=== PATIENT | female | born 1950 | race Caucasian/White ===

== ENCOUNTER 2018-04-08 09:56 | Emergency (ER) | payer MEDICARE, OTHER ==
--- NOTE | 2018-04-08 10:31 | EDM.PDOC ---
ED HPI GENERAL MEDICAL PROBLEM - General Chief Complaint: Lower Extremity Injury/Pain Stated Complaint: FALL Time Seen by Provider: 04/08/18 10:12 Source of Information: Reports: Patient History Limitations: Reports: No Limitations - History of Present Illness INITIAL COMMENTS - FREE TEXT/NARRATIVE: HISTORY AND PHYSICAL: History of present illness: Patient is a 68-year-old female brought in by EMS with left hip injury. She states that last night around 10 PM she was out watering her garden she was going down the 2 steps to her back door missed the first step and fell down and believes that she landed vertically onto her left side. She states she was unable to put any pressure on it immediately and this morning woke up still unable to put pressure on it so she called EMS. She also notes that she scraped her left forearm on her railing on the way down. She denies hitting her head and denies any loss of consciousness. She denies any dizziness or lightheadedness prior to the fall. She denies any headache, nausea, vomiting, abdominal pain, diarrhea, chest pain, shortness of breath. Patient denies any significant past medical history denies any aspirin use or anticoagulation. She reports social drinking and did state that she had one drink last night. She smokes half to 1 pack per day 30 years. Patient reports history of left patella fracture with surgical repair. Review of systems: As per history of present illness and below otherwise all systems reviewed and negative. Past medical history: As per history of present illness and as reviewed below otherwise noncontributory. Surgical history: As per history of present illness and as reviewed below otherwise noncontributory. Social history: No reported history of drug or alcohol abuse. Family history: As per history of present illness and as reviewed below otherwise noncontributory. Physical exam: General: Patient lying comfortably well-developed and well-nourished in no acute distress HEENT: Atraumatic, normocephalic, pupils reactive, negative for conjunctival pallor or scleral icterus, mucous membranes moist, throat clear, neck supple, nontender, trachea midline. Lungs: Clear to auscultation, breath sounds equal bilaterally, chest nontender. Heart: S1S2, regular, negative for clicks, rubs, or JVD. Abdomen: Soft, nondistended, nontender. Negative for masses or hepatosplenomegaly. Negative for costovertebral tenderness. Pelvis: Stable nontender. Genitourinary: Deferred. Rectal: Deferred. Extremities: There is abrasion from the medial side of the left wrist onto midforearm. No tenderness to palpation of the left wrist forearm or elbow. There is no ecchymosis or swelling to the left hip and thigh. Skin is intact. She has tenderness to palpation of the left greater trochanter and down the lateral side of the left eye. She was unable to flex at the hip. Left hip is externally rotated. She has no pain to palpation of the left knee and ankle and has normal ROM. Negative for cords or calf pain. Neurovascular unremarkable. Neuro: Awake, alert, oriented. Cranial nerves II through XII unremarkable. Cerebellum unremarkable. Motor and sensory unremarkable throughout. Exam nonfocal. Notes: Dr. Tadeo reviewed x-rays, agrees to transfer to [facility]. Diagnostics: X-ray left hip and pelvis CBC, CMP, PT/INR, EKG, CXR Therapeutics: Morphine 2mg Impression: Left hip fracture Plan: Discussed with Dr. Norman, ER physician [facility], patient accepted for transfer. Definitive disposition and diagnosis as appropriate pending reevaluation and review of above. left leg Pain Score (Numeric/FACES): 10 - Related Data Allergies Allergy/AdvReac Type Severity Reaction Status Date / Time No Known Allergies Allergy Verified 04/08/18 10:02 Home Meds: Home Meds . [No Known Home Meds] 04/08/18 [History] Past Medical History - Past Health History Medical/Surgical History: Denies Medical/Surgical History - Infectious Disease History Infectious Disease History: Reports: Chicken Pox, Mumps - Past Surgical History Musculoskeletal Surgical History: Reports: Other (See Below) Other Musculoskeletal Surgeries/Procedures:: Knee surgery Social & Family History - Family History Family Medical History: Noncontributory - Tobacco Use Smoking Status *Q: Current Every Day Smoker Years of Tobacco use: 30 Packs/Tins Daily: 0.5 - Alcohol Use Days Per Week of Alcohol Use: 3 Number of Drinks Per Day: 4 Total Drinks Per Week: 12 - Recreational Drug Use Recreational Drug Use: No Review of Systems - Review of Systems Review Of Systems: ROS reveals no pertinent complaints other than HPI. ED EXAM, GENERAL - Physical Exam Exam: See Below (See dictation) Course - Vital Signs Last Recorded V/S: Last Vital Signs Temp 37.1 C 04/08/18 10:03 Pulse 98 04/08/18 10:03 Resp 20 04/08/18 10:03 BP 155/90 H 04/08/18 10:03 Pulse Ox 96 04/08/18 10:03 - Orders/Labs/Meds Orders: Active Orders 24 hr Category Date Time Status EKG Documentation Completion [RC] STAT Care 04/08/18 10:50 Active Chest 1V Frontal [CR] Stat Exams 04/08/18 10:50 Taken Femur Min 2V Lt [CR] Stat Exams 04/08/18 10:37 Taken Pelvis 1V or 2V [CR] Stat Exams 04/08/18 10:37 Taken CBC WITH AUTO DIFF [HEME] Stat Lab 04/08/18 10:50 Ordered COMPREHENSIVE METABOLIC PN,CMP [CHEM] Stat Lab 04/08/18 10:50 Ordered INR,PT,PROTHROMBIN TIME [COAG] Stat Lab 04/08/18 10:50 Ordered Sodium Chloride 0.9% [Normal Saline] 1,000 ml Med 04/08/18 10:59 Active IV STAT Sodium Chloride 0.9% [Saline Flush] Med 04/08/18 10:59 Active 10 ml FLUSH ASDIRECTED PRN Sodium Chloride 0.9% [Saline Flush] Med 04/08/18 10:59 Active 2.5 ml FLUSH ASDIRECTED PRN Saline Lock Insert [OM.PC] Stat Oth 04/08/18 10:59 Ordered Medication Orders Sodium Chloride (Normal Saline) 1,000 mls @ 125 mls/hr IV STAT ONE Stop: 04/08/18 18:58 Sodium Chloride (Saline Flush) 10 ml FLUSH ASDIRECTED PRN PRN Reason: Keep Vein Open Sodium Chloride (Saline Flush) 2.5 ml FLUSH ASDIRECTED PRN PRN Reason: Keep Vein Open Meds: Medications Generic Name Dose Route Start Last Admin Trade Name Freq PRN Reason Stop Dose Admin Sodium Chloride 1,000 mls @ 125 mls/hr 04/08/18 10:59 Normal Saline IV 04/08/18 18:58 STAT ONE Sodium Chloride 10 ml 04/08/18 10:59 Saline Flush FLUSH ASDIRECTED PRN Keep Vein Open Sodium Chloride 2.5 ml 04/08/18 10:59 Saline Flush FLUSH ASDIRECTED PRN Keep Vein Open Discontinued Medications Generic Name Dose Route Start Last Admin Trade Name Igorq PRN Reason Stop Dose Admin Morphine Sulfate 2 mg 04/08/18 10:59 Morphine IVPUSH 04/08/18 11:00 ONETIME ONE Departure - Departure Time of Disposition: 11:10 Disposition: DC/Tfer to Acute Hospital 02 Condition: Good Clinical Impression: Hip fracture, left - Discharge Information Referrals: PCP,None [Primary Care Provider] - Forms: ED Department Discharge - My Orders Last 24 Hours: My Active Orders 04/08/18 10:37 Femur Min 2V Lt [CR] Stat Pelvis 1V or 2V [CR] Stat 04/08/18 10:50 EKG Documentation Completion [RC] STAT CBC WITH AUTO DIFF [HEME] Stat COMPREHENSIVE METABOLIC PN,CMP [CHEM] Stat INR,PT,PROTHROMBIN TIME [COAG] Stat 04/08/18 10:59 Sodium Chloride 0.9% [Normal Saline] 1,000 ml IV STAT Sodium Chloride 0.9% [Saline Flush] 10 ml FLUSH ASDIRECTED PRN Sodium Chloride 0.9% [Saline Flush] 2.5 ml FLUSH ASDIRECTED PRN Saline Lock Insert [OM.PC] Stat - Assessment/Plan Last 24 Hours: My Active Orders 04/08/18 10:37 Femur Min 2V Lt [CR] Stat Pelvis 1V or 2V [CR] Stat 04/08/18 10:50 EKG Documentation Completion [RC] STAT CBC WITH AUTO DIFF [HEME] Stat COMPREHENSIVE METABOLIC PN,CMP [CHEM] Stat INR,PT,PROTHROMBIN TIME [COAG] Stat 04/08/18 10:59 Sodium Chloride 0.9% [Normal Saline] 1,000 ml IV STAT Sodium Chloride 0.9% [Saline Flush] 10 ml FLUSH ASDIRECTED PRN Sodium Chloride 0.9% [Saline Flush] 2.5 ml FLUSH ASDIRECTED PRN Saline Lock Insert [OM.PC] Stat
[2018-04-08] MEDS ORDERED: Sodium Chloride 0.9% 1,000 ML IV ONE (10:59)
[2018-04-08] MEDS ORDERED: Morphine 2 MG/ML Syringe IVPUSH ONE (10:59)
[2018-04-08] MEDS ORDERED: Sodium Chloride 0.9% 10 ML Syringe FLUSH PRN (10:59)
[2018-04-08] MEDS ORDERED: Sodium Chloride 0.9% 2.5 ML Syringe FLUSH PRN (10:59)
--- NOTE | 2018-04-08 11:09 | CR ---
EXAMINATION: Pelvis and left femur HISTORY: Pain COMPARISON: None TECHNIQUE: AP views of the pelvis and AP and lateral views of the femur FINDINGS: There is a comminuted mildly impacted left intertrochanteric proximal femur fracture. There is a vertical component extending inferiorly along the proximal femur into the diaphysis. Remaining osseous structures and joint spaces appear intact. Bone mineralization is normal to osteopenic. SI keith ints are symmetric. No suprapatellar joint effusion. Hardware fixation of the patella is noted. IMPRESSION: Comminuted mildly impacted left intertrochanteric fracture.
--- NOTE | 2018-04-08 11:13 | CR ---
EXAMINATION: Portable chest radiograph. HISTORY: Shortness of breath. FINDINGS: The trachea is midline. The cardiomediastinal silhouette is within normal limits. No pulmonary infilt rates, effusions or pneumothorax. Mild aortic vascular calcifications. Osseous structures appear unremarkable. IMPRESSION: No acute cardiopulmonary process.
[2018-04-08 12:00] LABS: CHLORIDE,CL 95 mmol/L (98-107); SODIUM,NA 129 mmol/L (136-145)
== END 2018-04-08 11:50 ==
LOC: MW.ED 09:56
DX: S72.142A Displaced intertrochanteric fracture of left femur, initial encounter for closed fracture (principal); F17.210 Nicotine dependence, cigarettes, uncomplicated; W10.9XXA Fall (on) (from) unspecified stairs and steps, initial encounter
CPT/HCPCS: 36415; 71045; 72170; 73552; 80053; 81001; 85025; 85610; 93005; 96374; 99285; J2270; J7040; 99284

== ENCOUNTER 2020-09-25 20:06 | Emergency (ER) | payer MEDICARE, OTHER ==
[2020-09-25] MEDS ORDERED: Diphtheria/Tetanus Toxoids,Adult (Td) 0.5 ML Syringe IM ONE (21:19)
[2020-09-25] MEDS: Diphtheria,Pertussis(Acell),Tetanus Vaccine 0.5 ML Syringe IM ONE ×2 (21:24→22:35)
[2020-09-25] MEDS: Ibuprofen 600 MG Tab PO ONE ×3 (21:27→22:34)
--- NOTE | 2020-09-25 22:02 | CR ---
Indication: Fall, injury Technique: Three views Comparison: None Findings: Bones: There is an oblique fracture at the level of the surgical neck of the left proximal humerus. No significant distraction or displacement. Joint spaces: No dislocation. Soft tissues: Mild atherosclerotic calcification. Dictated by Nakul Nichole MD @ Sep 25 2020 9:59PM Signed by Dr. Nakul Nichole @ Sep 25 2020 10:00PM
--- NOTE | 2020-09-25 22:04 | CR ---
Indication: Fall, injury Technique: Two views Comparison: None Findings: Bones: Surgical neck left proximal humerus fracture redemonstrated, please see shoulder report for additional comments. No distal humeral fracture identified. Joint spaces: No dislocation. Soft tissues: Unremarkable. Dictated by Nakul Nichole MD @ Sep 25 2020 9:59PM Signed by Dr. Nakul Nichole @ Sep 25 2020 10:02PM
--- NOTE | 2020-09-25 22:12 | CR ---
Indication: Fall with injury Technique: Two views Comparison: None Findings: Bones: Alignment is normal. No fractures or bone lesions. Joint spaces: Unremarkable. Soft tissues: Unremarkable. Dictated by Nakul Nichole MD @ Sep 25 2020 9:59PM Signed by Dr. Nakul Nichole @ Sep 25 2020 10:11PM
--- NOTE | 2020-09-25 22:15 | CR ---
Indication: Fall, injury Technique: Three views Comparison: None Findings: Bones: Osteopenia without evidence of fracture. Joint spaces: Unremarkable. Soft tissues: Unremarkable. Dictated by Nakul Nichole MD @ Sep 25 2020 9:59PM Signed by Dr. Nakul Nichole @ Sep 25 2020 10:12PM
--- NOTE | 2020-09-25 22:40 | EDM.PDOC ---
ED HPI GENERAL MEDICAL PROBLEM - General Chief Complaint: Upper Extremity Injury/Pain Stated Complaint: SLIP AND FALL Time Seen by Provider: 09/25/20 20:29 - History of Present Illness INITIAL COMMENTS - FREE TEXT/NARRATIVE: CHIEF COMPLAINT(S): Fall HISTORY OF PRESENT ILLNESS: This is a 70-year-old woman without any significant past medical history who comes to the emergency department with a chief complaint of fall. The patient states that prior to arrival she slipped and fell on the ice. She states that she did not hit her head or have any loss of consciousness. She denies any oral anticoagulation. She denies any preceding chest pain, shortness of breath and did not pass out. She states that she caught herself on her left hand and she is experiencing some left hand, left wrist, and left shoulder pain. She denies any numbness, tingling, or weakness. She states that the pain is worse when she tries to lift her left arm. She describes the pain as achy. She rates it as 6 out of 10. She denies any radiation of the pain. She denies any relieving symptoms. She has not yet tried any pain medications. She denies any other injuries. She denies any chest pain, shortness of breath, abdominal pain, nausea or vomiting. She does not recall when her tetanus was last administered. REVIEW OF SYSTEMS: Constitutional: Denies fever, chills. Eyes: Denies eye pain Ears, Nose, Mouth, & Throat: Denies earache Cardiovascular: Denies chest pain Respiratory: Denies shortness of breath Gastrointestinal: Denies Nausea, vomiting, diarrhea, hematochezia. Genitourinary: Denies hematuria MSK: Positive for left hand, left wrist, and left shoulder pain. Neurological: Denies blurred vision, numbness, tingling, weakness Psychiatric: Denies depression PAST MEDICAL HISTORY: As per history of present illness and as reviewed below otherwise noncontributory. SURGICAL HISTORY: As per history of present illness and as reviewed below otherwise noncontributory. SOCIAL HISTORY: As per history of present illness and as reviewed below otherwise noncontributory. FAMILY HISTORY: As per history of present illness and as reviewed below otherwise noncontributory. EXAMINATION OF ORGAN SYSTEMS/BODY AREAS: Constitutional: Blood pressure is 180/89, heart rate 82, respiratory rate 18 with an oxygen saturation 96% on room air. Temperature 36.4 General: Overall well-appearing woman who is in no acute distress Psychiatric: Appropriate mood and affect. Eyes: No scleral icterus or conjunctival erythema ENMT: Moist mucous membranes. No pharyngeal erythema no missed or chipped teeth. No blood in the oropharynx. Cardiovascular: Regular, rate, and rhythm. No gallops, murmurs, or rubs. Bilateral upper extremity pulses symmetric and intact. No peripheral edema. No JVD. Respiratory: Lungs clear to auscultation bilaterally. No wheezes, rales, or rhonchi. Gastrointestinal: Soft, non-tender, non-distended. Normoactive bowel sounds Genitourinary: No suprapubic tenderness Musculoskeletal: Decreased range of motion of the left shoulder secondary to pain. The patient has full dexterity of her left hand, left wrist, left elbow. There is tenderness to palpation along the upper part of the left arm near her shoulder. There is medial wrist tenderness. There is no anatomical snuffbox tenderness. There is no cervical, thoracic, or lumbar midline tenderness. Skin: There is a small puncture wound to the patient's left palm without any active bleeding or laceration. Neurological: Alert, GCS 15 sensation distally is intact. Behavioral Science Chair strength is equal bilaterally. MEDICAL DECISION MAKING AND COURSE IN THE ED WITH INTERPRETATION/REVIEW OF DIAGNOSTIC STUDIES: This is a 70-year-old woman without any significant past medical history who comes to the emergency department with mechanical fall with left shoulder, left wrist, and left hand pain. Given that the patient does not have a tetanus shot we will update it. We will provide the patient with ibuprofen by mouth for pain relief. We will obtain x-rays of the left shoulder, left humerus, left hand, left forearm. We will reevaluate. I do not believe any other labs or imaging are indicated. The radiological images were viewed by myself along with reading the report from the radiologist. Left shoulder x-ray reveals a oblique fracture at the level of the surgical necks of the left proximal humerus. No displacement. Left humeral x-ray reveals a surgical neck left proximal humeral fracture. Otherwise unremarkable. Left hand x-ray does not reveal any fracture or dislocation. Left forearm x-ray does not reveal any fracture or dislocation. After imaging I did discuss with patient that she does not fact have a fracture. I discussed with her that she should use Tylenol and Motrin for pain relief at home. I discussed with her that we would be placing her in a shoulder immobilizer and that she need to be evaluated by orthopedics outpatient in approximately 5 to 7 days. I did offer a contact number for orthopedic surgeon however she states that she has her own orthopedic surgeon in [place]. At the time of reevaluation she again was neurovascularly intact in all ulnar, radial, and median nerve distributions. There was no swelling in her pulses were intact. She is to return for any new or worsening symptoms The patient was placed in a shoulder immobilizer by RN. DISPOSITION: The patient was discharged home in stable condition. The patient will follow up with orthopedics within 5 to 7 days CONDITION: Fair PROCEDURES: None FINAL IMPRESSION(S)/DIAGNOSES: 1. Acute proximal left humeral oblique fracture DME: Shoulder Immobilizer Left Indication: Proximal Humeral Fracture Benefit: Immobilization Duration: Until follow up with orthopedics Fab Beckett M.D. Left Upper Arm Pain Score (Numeric/FACES): 6 - Related Data Allergies Allergy/AdvReac Type Severity Reaction Status Date / Time No Known Allergies Allergy Verified 09/25/20 20:20 Home Meds: Home Meds . 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: - Infectious Disease History Infectious Disease History: Reports: Chicken Pox, Mumps - Past Surgical History Musculoskeletal Surgical History: Reports: Other (See Below) Other Musculoskeletal Surgeries/Procedures:: Knee surgery, femur fx surgery Social & Family History - Family History Family Medical History: No Pertinent Family History - Tobacco Use Tobacco Use Status *Q: Never Tobacco User Second Hand Smoke Exposure: No - Recreational Drug Use Recreational Drug Use: No Review of Systems - Review of Systems Review Of Systems: See Below ED EXAM, GENERAL - Physical Exam Exam: See Below Course - Vital Signs Last Recorded V/S: Last Vital Signs Temp 36.3 C 09/25/20 23:00 Pulse 81 09/25/20 23:00 Resp 18 09/25/20 23:00 BP 123/78 09/25/20 23:00 Pulse Ox 96 09/25/20 23:00 - Orders/Labs/Meds Orders: Active Orders 24 hr Category Date Time Status DME for Discharge [COMM] Stat Oth 01/26/21 22:29 Ordered Meds: Medications Discontinued Medications Generic Name Dose Route Start Last Admin Trade Name Mandy PRN Reason Stop Dose Admin Diphtheria/Tetanus/Acell Pertussis 0.5 ml 09/25/20 21:07 09/25/20 22:35 Boostrix IM 09/25/20 21:08 Not Given .ONCE ONE Ibuprofen 600 mg 09/25/20 21:02 09/25/20 22:34 Motrin PO 09/25/20 21:03 Not Given ONETIME ONE Tetanus/Diphtheria Toxoids 0.5 ml 09/25/20 21:19 09/25/20 21:24 Tenivac IM 09/25/20 21:20 0.5 ml .ONCE ONE Administration Departure - Departure Time of Disposition: 22:38 Disposition: Home, Self-Care 01 Condition: Fair Clinical Impression: Fracture of humerus Qualifiers: Encounter type: initial encounter Humerus Location: surgical neck Fracture type: closed Fracture morphology: unspecified fracture morphology Fracture alignment: nondisplaced Laterality: left Qualified Code(s): S42.215A - Unspecified nondisplaced fracture of surgical neck of left humerus, initial encounter for closed fracture - Discharge Information *PRESCRIPTION DRUG MONITORING PROGRAM REVIEWED*: No *COPY OF PRESCRIPTION DRUG MONITORING REPORT IN PATIENT PAULINE: No Instructions: Humerus Fracture Treated With Immobilization, [id number], How To Use a Sling, [id number], Pain Medicine Instructions, [id number] Referrals: PCP,None [Primary Care Provider] - Forms: ED Department Discharge Additional Instructions: You were evaluated today on an emergent basis. At this time you have a fracture of your upper arm bone called your humerus. This fracture is in good alignment. You are to keep the left arm in a sling until you follow-up with orthopedics in 5 to 7 days. If you have any worsening pain, weakness or numbness in your hand please return to the emergency department. Please take Tylenol 500 to 1000 mg every 6 hours and ibuprofen 400 mg every 6 hours for pain relief. [facility] [address], [address] [place] [address] The patient is informed of any results of their evaluation and diagnostic workup and all questions are answered. They are given discharge instructions and return precautions. The patient is stable for discharge. The patient states they understand and agree with the plan and that they will return if their symptoms get worse or if they have any new concerns. The following information is given to patients seen in the emergency department who are being discharged to home. This information is to outline your options for follow-up care. We provide all patients seen in our emergency department with a follow-up referral. The need for follow-up, as well as the timing and circumstances, are variable depending upon the specifics of your emergency department visit. If you don't have a primary care physician on staff, we will provide you with a referral. We always advise you to contact your personal physician following an emergency department visit to inform them of the circumstance of the visit and for follow-up with them and/or the need for any referrals to a consulting specialist. The emergency department will also refer you to a specialist when appropriate. This referral assures that you have the opportunity for follow-up care with a specialist. All of these measure are taken in an effort to provide you with optimal care, which includes your follow-up. Under all circumstances we always encourage you to contact your private physician who remains a resource for coordinating your care. When calling for follow-up care, please make the office aware that this follow-up is from your recent emergency room visit. If for any reason you are refused follow-up, please contact the [facility] Emergency Department at and asked to speak to the emergency department charge nurse. Sepsis Event Note (ED) - Evaluation Sepsis Screening Result: No Definite Risk - Focused Exam Vital Signs: Vital Signs Temp Pulse Resp BP Pulse Ox 09/25/20 23:00 36.3 C 81 18 123/78 96 09/25/20 20:15 36.4 C 82 18 180/89 H 96 - My Orders Last 24 Hours: My Active Orders 09/25/20 22:29 DME for Discharge [COMM] Stat - Assessment/Plan Last 24 Hours: My Active Orders 09/25/20 22:29 DME for Discharge [COMM] Stat
== END 2020-09-25 23:05 | disposition home or self-care (01) ==
LOC: MW.ED 20:06
DX: S42.212A Unspecified displaced fracture of surgical neck of left humerus, initial encounter for closed fracture (principal); S61.432A Puncture wound without foreign body of left hand, initial encounter; Z23 Encounter for immunization; W00.0XXA Fall on same level due to ice and snow, initial encounter
CPT/HCPCS: 73030-26-LT; 73030-LT; 73060-26-LT; 73060-LT; 73090-26-LT; 73090-LT; 73130-26-LT; 73130-LT; 90471; 90714; 99283; 99284

== ENCOUNTER 2023-12-22 20:36 | Inpatient (IN) | payer MEDICARE, OTHER ==
[2023-12-22 21:54] LABS: BASOPHILS ABSOLUTE AUTO 0.06 K/uL (0.00-0.20); BASOPHILS PERCENT AUTO 0.6 % (0.0-1.0); EOSINOPHILS ABSOLUTE AUTO 0.08 K/uL (0.00-0.45); EOSINOPHILS PERCENT AUTO 0.8 % (0.0-6.0); HEMATOCRIT 41.4 % (37.0-47.0); HEMOGLOBIN 13.8 g/dL (12.0-16.0); IMMATURE GRAN ABSOLUTE AUTO 0.05 K/uL (0.00-0.05); IMMATURE GRAN PERCENT AUTO 0.5 % (0.0-0.4); LYMPHOCYTES ABSOLUTE AUTO 1.49 K/uL (1.00-4.80); LYMPHOCYTES PERCENT AUTO 14.8 % (24.0-44.0); MEAN CORPUSCULAR HEMOGLOBIN 31.6 pg (28.0-32.0); MEAN CORPUSCULAR HGB CONC 33.3 g/dL (32.0-36.0); MEAN CORPUSCULAR VOLUME 94.7 fL (83.0-99.0); MEAN PLATELET VOLUME 9.6 fL (9.4-12.3); MONOCYTES ABSOLUTE AUTO 0.66 K/uL (0.00-0.80); MONOCYTES PERCENT AUTO 6.6 % (0.0-8.0); NEUTROPHILS PERCENT AUTO 76.7 % (41.0-71.0); PLATELET COUNT,PLT 248 K/uL (150-400); RED BLOOD CELL COUNT 4.37 M/uL (4.10-5.30); WHITE BLOOD CELL COUNT,WBC 10.04 K/uL (3.9-11.3)
[2023-12-22 22:09] LABS: INR 1.05 (0.86-1.11); PTT,PARTIAL THROMBOPLSTIN TIME 25.4 SEC (23.9-30.7)
[2023-12-22 22:18] LABS: A/G RATIO 1.2 (0.9-1.6); ALBUMIN 3.6 g/dL (3.4-5.0); BILIRUBIN TOTAL 0.3 mg/dL (0.2-1.0); CARBON DIOXIDE,CO2 24.7 mmol/L (21.0-32.0); CREATININE 0.8 mg/dL (0.6-1.0); EST CRCL DRUG DOSING (CG) 52.65 mL/min; PROTEIN TOTAL,TP 6.6 g/dL (6.4-8.2)
[2023-12-22] MEDS ORDERED: Acetaminophen 325 MG Tab PO PRN (22:46)
[2023-12-22] MEDS ORDERED: Morphine 2 MG/ML SYRINGE IVPUSH PRN (22:46)
[2023-12-22] MEDS ORDERED: Ondansetron 4 MG/2 ML SDV IVPUSH PRN (22:46)
[2023-12-22] MEDS ORDERED: Albuterol/Ipratropium 3.0-0.5 MG/3 ML Neb Soln NEB PRN (22:46)
[2023-12-22] MEDS ORDERED: Polyethylene Glycol 3350 Powder 17 GM Packet PO PRN (22:46)
[2023-12-22] MEDS: Acetaminophen 500 MG Tab PO ONE (23:16)
[2023-12-23] MEDS: Pantoprazole 40 MG in Sodium Chloride 0.9% 10 ML IVPUSH SCH (01:08)
[2023-12-23 06:11] LABS: HEMATOCRIT 38.7 % (37.0-47.0); HEMOGLOBIN 12.9 g/dL (12.0-16.0); MEAN CORPUSCULAR HEMOGLOBIN 31.3 pg (28.0-32.0); MEAN CORPUSCULAR HGB CONC 33.3 g/dL (32.0-36.0); MEAN CORPUSCULAR VOLUME 93.9 fL (83.0-99.0); MEAN PLATELET VOLUME 9.9 fL (9.4-12.3); PLATELET COUNT,PLT 230 K/uL (150-400); RED BLOOD CELL COUNT 4.12 M/uL (4.10-5.30); WHITE BLOOD CELL COUNT,WBC 11.35 K/uL (3.9-11.3)
[2023-12-23 06:37] LABS: CALCIUM 8.9 mg/dL (8.5-10.1); CARBON DIOXIDE,CO2 24.7 mmol/L (21.0-32.0); CREATININE 0.8 mg/dL (0.6-1.0); EST CRCL DRUG DOSING (CG) 52.65 mL/min; POTASSIUM,K 4.3 mmol/L (3.5-5.1)
[2023-12-23] MEDS ORDERED: HYDROmorphone 1 MG/ML Syringe IVPUSH PRN (10:03)
[2023-12-23] MEDS ORDERED: droPERidol 5 MG/2 ML SDV IVPUSH PRN (10:03)
[2023-12-23] MEDS ORDERED: Morphine 2 MG/ML SYRINGE IVPUSH PRN (10:03)
[2023-12-23] MEDS ORDERED: Naloxone 0.4 MG/ML SDV IVPUSH PRN (10:03)
[2023-12-23] MEDS ORDERED: Metoclopramide 10 MG/2 ML SDV IVPUSH PRN (10:03)
[2023-12-23] MEDS ORDERED: fentaNYL 50 MCG/ML SDV IVPUSH PRN (10:03)
[2023-12-23] MEDS ORDERED: Albuterol 0.083% 2.5 MG/3 ML Neb Soln NEB PRN (10:03)
[2023-12-23] MEDS ORDERED: Ondansetron 4 MG/2 ML SDV IVPUSH PRN (10:03)
[2023-12-23] MEDS ORDERED: fentaNYL 100 MCG/2 ML SDV ONE ×2 (11:48→11:52)
[2023-12-23] MEDS ORDERED: EPINEPHrine 1 MG/1 ML Amp ONE (11:48)
[2023-12-23] MEDS ORDERED: propofoL 50 ML ONE (11:49)
[2023-12-23] MEDS ORDERED: Ketamine HCL/NACL, ISO-OSM 50 MG/5 ML Syringe ONE (11:50)
[2023-12-23] MEDS ORDERED: ceFAZolin 2 GM Vial ONE (12:20)
[2023-12-23] MEDS ORDERED: Tranexamic Acid 1,000 MG/10 ML Vial ONE (12:41)
[2023-12-23] MEDS ORDERED: Ondansetron 4 MG/2 ML SDV ONE ×2 (12:42→13:08)
[2023-12-23] MEDS ORDERED: ePHEDrine 50 MG/ML SDV ONE (12:42)
[2023-12-23] MEDS ORDERED: Calcium Chloride 10% 1 GM/10 ML Syringe ONE (13:07)
[2023-12-23] MEDS ORDERED: Phenylephrine HCl In 0.9% NaCl 1 MG/10 ML Syringe ONE ×2 (13:08→13:18)
[2023-12-23] MEDS ORDERED: Magnesium Sulfate (4.06 MEQ/ML) 5 GM/10 ML SDV ONE (13:08)
[2023-12-23] MEDS ORDERED: Ketorolac 30 MG/ML SDV ONE (13:09)
[2023-12-23] MEDS ORDERED: Lidocaine 1% 5 ML VIAL ONE (13:18)
[2023-12-23] MEDS ORDERED: Dexamethasone 4 MG/ML 5 ML MDV ONE (13:19)
[2023-12-23] MEDS ORDERED: Lidocaine 2% 11 ML Jelly Filled Syringe ONE (13:21)
[2023-12-23] MEDS ORDERED: traMADol 50 MG Tab PO PRN (13:53)
[2023-12-23] MEDS ORDERED: oxyCODONE 5 MG Tab PO PRN (13:53)
[2023-12-23] MEDS: ceFAZolin 1 GM in Sodium Chloride 0.9% 50 ML IV ONE (14:26)
[2023-12-23] MEDS ORDERED: LORazepam 1 MG Tab PO PRN (15:25)
[2023-12-23] MEDS: Thiamine 200 MG/2 ML MDV IVPUSH SCH (16:55)
[2023-12-23] MEDS: Folic Acid 1 MG/0.2 ML UD Syringe IV SCH (16:55)
[2023-12-23] MEDS: Acetaminophen 325 MG Tab PO SCH (17:27)
[2023-12-23] MEDS: Acetaminophen 325 MG/10.15 ML PO SCH (17:30)
[2023-12-23] MEDS: ceFAZolin 2 GM in Sodium Chloride 0.9% 50 ML IV SCH (21:14)
[2023-12-23] MEDS: Aspirin 325 MG Tab PO SCH (21:16)
[2023-12-24 06:50] LABS: HEMATOCRIT 31.1 % (37.0-47.0); HEMOGLOBIN 10.4 g/dL (12.0-16.0)
== END 2023-12-24 09:55 | disposition home or self-care (01) | DRG 482 ==
LOC: MW.ED 20:36 → MW.MS 22:25 → UNDOADMIN 22:51 → MW.MS 22:51 → UNDODISIN 12-24 09:55
PROVIDERS: ADMIT Family Medicine; ATTEND Family Medicine
PROC: 0QS634Z Reposition Right Upper Femur with Internal Fixation Device, Percutaneous Approach (ICD-10-PCS; principal; 2023-12-22)
DX: S72.141A Displaced intertrochanteric fracture of right femur, initial encounter for closed fracture (principal); W01.198A Fall on same level from slipping, tripping and stumbling with subsequent striking against other object, initial encounter; Y92.000 Kitchen of unspecified non-institutional (private) residence as the place of occurrence of the external cause; I10 Essential (primary) hypertension; F17.210 Nicotine dependence, cigarettes, uncomplicated; Z96.642 Presence of left artificial hip joint; Z98.890 Other specified postprocedural states; I49.1 Atrial premature depolarization; W01.0XXA Fall on same level from slipping, tripping and stumbling without subsequent striking against object, initial encounter
CPT/HCPCS: 01220; 36415; 73501-26-RT; 73501-RT; 76000; 76000-26; 80048; 80053; 83735; 85014; 85018; 85025; 85027; 85610; 85730; 93005; 93010; 97162-GP; 99100; 99222; 99232; 99239; 99283; 99285; A9270-GY; C9113; J0171; J0690; J1100; J1885; J2371; J2405; J2704; J3010; J3411; J3475; J3490